=== PATIENT | male | born 1975 | race Caucasian/White ===

== ENCOUNTER 2021-11-13 07:24 | Emergency (ER) | payer BC, MEDICAID ==
[~2021-11-13] VITALS: Ht 167.6 cm; Wt 81.0 kg
[2021-11-13 07:30] VITALS: BP 149/80
[2021-11-13] MEDS ORDERED: DIAZEPAM 5 MG TABLET PO ONE (08:00)
[2021-11-13] MEDS ORDERED: ONDANSETRON 4MG ODT PO ONE (08:00)
[2021-11-13] MEDS ORDERED: KETOROLAC 60MG/2ML VIAL IM ONE (08:00)
[2021-11-13] MEDS ORDERED: HYDROCODONE/ACETAMINOPHEN 5/325MG TABLET PO ONE (08:00)
[2021-11-13] MEDS ORDERED: METH-773 MT (09:16)
[2021-11-13] MEDS ORDERED: IBUP-2030 MT (09:16)
[2021-11-13] MEDS ORDERED: TRAM50TA3 MT (09:16)
== END 2021-11-13 09:31 | disposition home or self-care (01) ==
LOC: ER 07:24
DX: M54.50 Low back pain, unspecified (principal)
CPT/HCPCS: 96372; 99284; J1885; Q0162